=== PATIENT | female | born 1935 | race Caucasian/White ===

== ENCOUNTER 2016-06-06 19:05 | Inpatient (IN) | payer MEDICARE, BC ==
--- NOTE | 2016-06-06 19:12 | ERNOTE ---
Lower Extremity HPI - Narrative Date of Service: 06/06/16 - General Lower Extremities Pain: hip: right, thigh: right Time Seen by Provider: 06/06/16 19:08 Source: patient, family, RN/MD, EMS, RN notes reviewed, EMS notes reviewed, old records Exam Limitations: no limitations - Immun/Allergies/Home Medications Allergies/Adverse Reactions: Allergies Allergy/AdvReac Type Severity Reaction Status Date / Time No Known Allergies Allergy Verified 06/06/16 20:58 Home Medications: HOME MEDICATIONS Lisinopril [Zestril] 10 mg PO DAILY 06/06/16 [Last Taken 06/06/16 10] Lovastatin 40 mg PO DAILY 06/06/16 [Last Taken Unknown] Metoprolol Tartrate [Lopressor] 50 mg PO BID 06/06/16 [Last Taken 06/06/16 08: 00 50 mg] - History of Present Illness Narrative: This 81-year-old female was at home walking with her when he slipped and almost fell. In attempting to catch him, she also fell. Unfortunately, she injured her hip. Evaluation at the [facility] revealed that she had sustained a right femoral head fracture. [facility] does not have orthopedic services available presently. They consult it with Dr. Rubin from the [facility]. Dr. Rubin agreed to accept the patient in transfer. He asked that the patient be admitted to the medical service here and he would perform surgery. In the emergency department, she was found to have a urinary tract infection. She was given a single dose of ceftriaxone 1 g by IV. Her evaluation did not reveal any other current problems at this time. Upon arrival here, the patient reports that she is reasonably comfortable. She denies any other problems at this time. Occurred: this afternoon Location of Incident: home Method of Injury: Reports: fell Reason for Fall: Reports: slipped Loss of Consciousness: Reports: no loss of consciousness Modifying Factors - (Improves): Reports: immobilization, pain medication, rest Modifying Factors - (Worsens): Reports: jarring, movement Associated Symptoms: Reports: unable to bear weight. Denies: weakness, sensory loss, vomiting/diarrhea, bowel/bladder problems, other injuries Other Injuries: Reports: none Subsequent Symptoms: Denies: sensory loss, numbness, motor loss, bowel/bladder problem Prior Treament: Reports: recently seen - at [facility] , treated by physician Review of Systems - Review of Systems Constitutional: Present: no symptoms reported EYE: Present: no symptoms reported ENT: Present: no symptoms reported Respiratory: Present: no symptoms reported Cardiology: Present: no symptoms reported Gastrointestinal/Abdominal: Present: no symptoms reported Genitourinary: Present: no symptoms reported Musculoskeletal: Present: See HPI, muscle pain - right thigh, joint pain - right hip. Absent: back pain, muscle stiffness, neck pain Skin: Present: no symptoms reported Neurological: Present: no symptoms reported Endocrine: Present: no symptoms reported Hematologic/Lymphatic: Present: no symptoms reported Psych: Present: no symptoms reported All Other Systems: All systems neg except as marked - Family History Father Family History - Medical: Family History - Cardiac/Respiratory: Cardiac Arrest Mother Family History - Medical: , No pertinent hx Physical Exam - Physical Exam General Appearance: Present: wd/wn, alert, no apparent distress Eye Exam: Normal inspection: bilateral, PERRL: bilateral, EOMI: bilateral Ears, Nose, Throat: Present: normal ENT inspection, hearing grossly normal Neck: Present: normal inspection, nontender Respiratory: Present: no respiratory distress, normal breath sounds, no accessory muscle use, chest nontender, lungs clear Cardiovascular/Chest: Present: regular rate, rhythm, no murmur, normal peripheral pulses Peripheral Pulses: N=norm/S=strong/W=weak/B=bound/A=absent: Carotid (R): Normal , Carotid (L): Normal, Radial (R): Normal, Radial (L): Normal, Femoral (R): Normal, Femoral (L): Normal, Dorsalis-pedis (R): Normal, Dorsalis-pedis (L): Normal Gastrointestinal/Abdominal: Present: normal bowel sounds, nontender, nondistended, soft, no organomegaly Back Exam: Present: normal inspection, no CVA tenderness, no vertebral tenderness Extremity Exam: Present: no edema, decreased range of motion, pelvis stable, other - splint immobilizing right thigh, distal neurovascular intact, cap refill in foot brisk, less than 2 seconds. Absent: pedal edema, calf tenderness , extremity edema Neurological Exam: Present: alert, oriented, normal mood/affect, no motor/ sensory deficits Skin Exam: Present: normal color, warm/dry Lymphatic Exam: Present: no adenopathy ED Progress - Results and Orders Patient's Lab Results:: I have reviewed the patient's lab results. - as available from [facility] emergency department - Vital Signs Patient's Vital Signs:: I have reviewed the patient's vital signs. Departure Clinical Impression: Fracture of femoral neck, right - Departure Disposition: [facility] Condition: Stable
[2016-06-06] MEDS ORDERED: ONDANSETRON HCL/PF 2 MG/ML VIAL IV PRN (19:40)
[2016-06-06] MEDS: HYDROmorphone HCL 1 MG/ML DISP.SYRIN IV PRN ×2 (19:58→22:09)
[2016-06-06 20:13] LABS: Hematocrit 44.4 % (37.0-47.0); Hemoglobin 14.8 gm/dL (12.5-16.0); Mean Cell Volume 88.1 fl (78-100); Mean Corpuscular Hemoglobin 29.4 pg (27-31); Mean Corpuscular Hgb Conc 33.3 g/dl (32-36); Mean Platelet Volume 9.3 fl (6.0-9.5); Neutrophil # 10.6 K/mm3 (1.3-6.0); Neutrophil % 83.5 % (42-75.0); Platelet Count 289 K/mm3 (150-450); Red Blood Count 5.04 M/mm3 (4.2-5.4); Red Cell Distribution Width 12.9 % (11.5-14.0); White Blood Count 12.7 K/mm3 (4.0-10.5)
[2016-06-06 20:22] LABS: Anion Gap 15.1 mmol/L (6.8-13.8); BUN/Creatinine Ratio 14.1 (9.0-21.6); Calcium * 8.9 mg/dL (7.9-10.9); Carbon Dioxide 25.9 mmol/L (24-32.6); Estimated Creat Clear 42.2
[2016-06-06 20:24] LABS: Prothrombin Time (Patient) 10.5 Seconds (9.4-11.4)
[2016-06-06 20:25] LABS: INR 1.01 INR (0.90-1.10); Partial Thrombolplastin Time 28.5 Seconds (24-32)
--- NOTE | 2016-06-06 21:05 | HP ---
<Lizabeth Valentin - Last Filed: 06/07/16 06:50> Chief Complaint - Chief Complaint Date of Service: 06/06/16 Time of Service: 20:08 Chief Complaint: " Fall". Source of HPI- Pt; reliable, ER provider report. History of Present Illness: Mrs. Timmons is a 81- yr-old WF pt who normally sees Dr. Triston Skelton, a family practice physician in [place]. Her PMH involved HTN & HLD. Pt states that while assisting her spouse going to the bathroom upstairs, he lost his balance. She took steps backward to prevent him from falling but in-turn, she lost balance and fell down two steps and her fell still. She landed on her back during the fall. She was taken to [facility] where X-Ray films completed showed she had sustained a RT hip femoral neck fracture. Arrangements were made for her to be seen by the Orthopedics at [facility] as the specialty doctor at the [facility] was not available today. Pt denies fevers & chills. She also denies n/v, no abd pain, no diarrhea, no SOB & no C.P. She will need to be admitted inpatient for a minimum of 2 midnight or more due to, surgical repair procedure that requires preoperative and postoperative monitoring, as well as rehabilitation services arrangements. - Patient's Past Medical History Patient History - Medical: No pertinent hx Patient History - Cardiac/Respiratory: Hypertension, Hyperlipidemia Patient History - Cancer: Bone Patient History - Surgical Procedures: Other LMP (females 10-50): Menopausal - Family History Father Family History - Medical: Family History - Cardiac/Respiratory: Cardiac Arrest Mother Family History - Medical: , No pertinent hx - Social History Living Situations: spouse Alcohol Use: none Drug Use: none - Immunizations Immunizations Up to Date: Yes Hx Pneumococcal Vaccination: Yes History of Influenza Vaccine: Yes Review Of Systems (GEN) - Review of Systems Generalized/Overall Review: Absent: Weakness, Chills, Fever, Diaphoresis EENTM: Absent: Eye Pain, Blurred Vision, Nose Congestion, Throat Pain Respiratory: Absent: Cough, Shortness of Breath, Wheezing Cardiac: Absent: Chest Pain, Edema, Palpitations Abdominal: Absent: Nausea, Vomiting, Abdominal Pain, Constipation Genitourinary: Absent: Burning, Itching, Urgency Musculoskeletal: Absent: Joint Pain, Back Pain Neurological: Absent: Headache, Anxiety, Weakness Skin: Present: Bruising. Absent: Dryness, Lesions, Lumps Endocrine: Absent: Increased Hunger, Increased Thirst Misc: All systems neg except as marked Allergies/Adverse Reactions: Allergies Allergy/AdvReac Type Severity Reaction Status Date / Time No Known Allergies Allergy Verified 06/06/16 20:58 Home Medications: HOME MEDICATIONS Lisinopril [Zestril] 10 mg PO DAILY 06/06/16 [Last Taken 06/06/16 10] Lovastatin 40 mg PO DAILY 06/06/16 [Last Taken Unknown] Metoprolol Tartrate [Lopressor] 50 mg PO BID 06/06/16 [Last Taken 06/06/16 08: 00 50 mg] Exam - Exam Vital Signs: Vital Signs - Last Taken Temp 36.8 C 06/06/16 19:08 Pulse 71 06/06/16 19:18 Resp 16 06/06/16 19:18 BP 182/99 06/06/16 19:18 Pulse Ox 96 06/06/16 19:18 Constitutional: Present: Alert, Oriented x3, Mild distress, Elderly ENT Exam: Present: normal ENT inspection. Absent: nasal congestion, nasal drainage, dry mucous membranes Eye Exam: bilateral eye: normal inspection, PERRL Neck: Present: full range of motion, supple, normal inspection Back Exam: Present: no CVA tenderness Breasts: Present: Exam deferred Respiratory: Present: lungs clear, no accessory muscle use Cardiovascular/Chest: Present: regular rate, rhythm, no chest tenderness, no murmur Abdomen: Present: Normal bowel sounds, soft, nontender /Rectal: Present: Exam deferred Skin Exam: Present: normal color, no cyanosis. Absent: diaphoresis Lymphatic: Present: no adenopathy Appearance: Present: appropriate appearance, appropriate insight, no memory impairment Eye contact: Present: cooperative, good eye contact, normal speech Thoughts: Present: normal thought pattern, no apparent hallucination Assessment/Plan - Assessment/Plan (1) Fracture of femoral neck, right Assessment: The X-ray film obtained at [facility] showed RT femoral Neck fracture. Arrangments have been made to proceed with repair of the hip by Dr. Harley and he is aware. Will admit for supportive cares: pain management, IVF hydration, immobilization of affected extremity. The CXR done in [facility] showed no cardiopulmonary disease process. The EKG showed NSR. According to RCRI score, she has a 0.9 % risk of major cardiac event perioperative. The benefit of proceeding with surgery outweighs the risk not doing any procedure. She is medically cleared to continue with surgery as planned. Problem: Acute (2) HTN (hypertension) Assessment: Keep pain under control, and continue with Metoprolol & Lisinopril. Problem: Chronic QualifierTitle: Hypertension type: essential hypertension Qualified Code( s): I10 - Essential (primary) hypertension (3) HLD (hyperlipidemia) Assessment: Stable- Continue Lovastatin. Problem: Chronic <Uvaldo Dean - Last Filed: 06/07/16 11:58> Immunizations: IMMUNIZATION HX Immunizations Up to Date Yes History of Influenza Vaccine Yes Hx Pneumococcal Vaccination Yes Exam - Exam Vital Signs: Vital Signs - Last Taken Temp 36.6 C 06/07/16 11:21 Pulse 69 06/07/16 11:50 Resp 18 06/07/16 11:21 BP 181/83 06/07/16 11:50 Pulse Ox 94 06/07/16 11:21 Diagnostic Studies: Abnormal Lab Results 06/06/16 06/06/16 Range/Units 19:34 20:00 WBC 12.7 H (4.0-10.5) K/mm3 Immature Gran % (Auto) 0.50 H (0.001-0.429) % Immature Gran # (Auto) 0.06 H (0.000-0.0310) K/mm3 Neutrophils % 83.5 H (42-75.0) % Lymphocytes % 9.9 L (20-51) % Neutrophils # 10.6 H (1.3-6.0) K/mm3 Lymphocytes # 1.3 L (1.5-3.5) k/mm3 Anion Gap 15.1 H (6.8-13.8) mmol/L Random Glucose 131 H (70-110) mg/dL Laboratory Results WBC 12.7 K/mm3 (4.0-10.5) H 06/06/16 19:34 RBC 5.04 M/mm3 (4.2-5.4) 06/06/16 19:34 Hgb 14.8 gm/dL (12.5-16.0) 06/06/16 19:34 Hct 44.4 % (37.0-47.0) 06/06/16 19:34 MCV 88.1 fl (78-100) 06/06/16 19:34 MCH 29.4 pg (27-31) 06/06/16 19:34 MCHC 33.3 g/dl (32-36) 06/06/16 19:34 RDW 12.9 % (11.5-14.0) 06/06/16 19:34 Plt Count 289 K/mm3 (150-450) 06/06/16 19:34 MPV 9.3 fl (6.0-9.5) 06/06/16 19:34 Immature Gran % (Auto) 0.50 % (0.001-0.429) H 06/06/16 19:34 Immature Gran # (Auto) 0.06 K/mm3 (0.000-0.0310) H 06/06/16 19:34 Neutrophils % 83.5 % (42-75.0) H 06/06/16 19:34 Lymphocytes % 9.9 % (20-51) L 06/06/16 19:34 Monocytes % 5.3 % (0.0-9) 06/06/16 19:34 Eosinophils % 0.4 % (0.0-3.0) 06/06/16 19:34 Basophils % 0.4 % (0.0-1.0) 06/06/16 19:34 Nucleated RBC % 0.0 k/mm3 (0-1) 06/06/16 19:34 Neutrophils # 10.6 K/mm3 (1.3-6.0) H 06/06/16 19:34 Lymphocytes # 1.3 k/mm3 (1.5-3.5) L 06/06/16 19:34 Monocytes # 0.7 k/mm3 (0.0-1.0) 06/06/16 19:34 Eosinophils # 0.1 k/mm3 (0.0-0.7) 06/06/16 19:34 Absolute Basophils 0.1 k/mm3 (0.0-0.1) 06/06/16 19:34 PT 10.5 Seconds (9.4-11.4) 06/06/16 20:00 INR (Anticoag Therapy) 1.01 INR (0.90-1.10) 06/06/16 20:00 PTT (Mendy) 28.5 Seconds (24-32) 06/06/16 20:00 Sodium 139 mmol/L (132-142) 06/06/16 20:00 Plasma Sodium 139 mmol/L (130-142) 06/06/16 20:00 Potassium 4.0 mmol/L (3.4-4.6) 06/06/16 20:00 Chloride 102 mmol/L (97-106) 06/06/16 20:00 Carbon Dioxide 25.9 mmol/L (24-32.6) 06/06/16 20:00 Anion Gap 15.1 mmol/L (6.8-13.8) H 06/06/16 20:00 BUN 12 mg/dL (3-23) 06/06/16 20:00 Creatinine 0.85 mg/dL (0.4-1.4) 06/06/16 20:00 Est GFR (Non-Af Amer) 68 mL/min (60-130) 06/06/16 20:00 BUN/Creatinine Ratio 14.1 (9.0-21.6) 06/06/16 20:00 Random Glucose 131 mg/dL (70-110) H 06/06/16 20:00 Calcium 8.9 mg/dL (7.9-10.9) 06/06/16 20:00 Blood Type O Negative 06/06/16 20:00 Antibody Screen Negative 06/06/16 20:00 Assessment/Plan - Narrative Narrative: I reviewed the record and examined the patient. I personally directed all of [facility]'s care for this patient. There are no contraindications for the intended surgery. There may be a UTI based on [place] records, and we are treating with IV Rocephin. Culture is pending in [place]. We will do an EKG in anticipation of right hip repair.
[2016-06-06] MEDS ORDERED: SIMVASTATIN 20 MG TABLET ONE (21:22)
[2016-06-06] MEDS: METOPROLOL TARTRATE 50 MG TABLET PO SCH (21:33)
[2016-06-06] MEDS: RINGERS SOLUTION,LACTATED 1,000 ML IV PRN (21:35)
[2016-06-07] MEDS: HYDROmorphone HCL 1 MG/ML DISP.SYRIN IV PRN ×4 (03:02→22:35)
[2016-06-07] MEDS: RINGERS SOLUTION,LACTATED 1,000 ML IV PRN ×3 (05:37→22:32)
--- NOTE | 2016-06-07 08:50 | PN ---
<Vandana Diaz - Last Filed: 06/07/16 08:50> Subjective - Date and Time Seen Date: 06/07/16 Time: 08:45 Subjective Narrative: Patient seen today with family at the bedside, she is AOX3 no acute distress and denies right hip pain, no chest pain, shortness of breath, cough, palpitation, fever, chills or dysuria. pt anticipating procedure tomorrow with Dr Guidry. Objective - Review of Systems Generalized/Overall Review: Reports: No Symptoms Reported EENTM: Reports: No Symptoms Reported Respiratory: Reports: No Symptoms Reported Cardiac: Reports: No Symptoms Reported Abdominal: Reports: No Symptoms Reported Genitourinary Symptoms: Reports: No Symptoms Reported Musculoskeletal Complaints: Reports: No Symptoms Reported Neurological: Reports: No Symptoms Reported Skin: Reports: No Symptoms Reported - Vitals Vitals: Last Vital Signs Temp 37 C 06/07/16 07:51 Pulse 66 06/07/16 07:51 Resp 18 06/07/16 07:51 BP 151/71 06/07/16 07:51 Pulse Ox 96 06/07/16 07:51 - Abnormal Lab Findings Abnormal Lab Findings: Abnormal Lab Results 06/06/16 06/06/16 Range/Units 19:34 20:00 WBC 12.7 H (4.0-10.5) K/mm3 Immature Gran % (Auto) 0.50 H (0.001-0.429) % Immature Gran # (Auto) 0.06 H (0.000-0.0310) K/mm3 Neutrophils % 83.5 H (42-75.0) % Lymphocytes % 9.9 L (20-51) % Neutrophils # 10.6 H (1.3-6.0) K/mm3 Lymphocytes # 1.3 L (1.5-3.5) k/mm3 Anion Gap 15.1 H (6.8-13.8) mmol/L Random Glucose 131 H (70-110) mg/dL - EKG/Xray Findings EKG: NSR - Exam Constitutional: Present: Alert, Oriented x3, Cooperative, Well developed, No distress, Elderly ENT Exam: Present: normal ENT inspection, moist mucous membranes Neck: Present: non-tender, full range of motion Breasts: Present: Exam deferred Respiratory: Present: chest non-tender, lungs clear, normal breath sounds, no respiratory distress, no accessory muscle use Cardiovascular/Chest: Present: normal peripheral pulses, regular rate, rhythm, no chest tenderness, no edema Abdomen: Present: Normal bowel sounds, soft, nontender, nondistended, no rebound tenderness /Rectal: Present: Other - Harmon cath Extremity: Present: other - Right leg limited ROM, splint Neurologic: Present: oriented x 3 Appearance: Present: appropriate appearance Eye contact: Present: cooperative, good eye contact Thoughts: Present: normal thought pattern Assessment/Plan Plan Narrative: 1) Fracture of femoral neck, right Secondary to mechanical fall while at home. Outside facility X-Ray obtained showed right femoral fracture Splint was applied at outside facility Ortho service Dr. Guidry following Pain management with IV Dilaudid VTE ppx SCD/ discussed with Dr guidry , pt will have spinal anesthesia and no Lovenox at this time. RCRI: Pt is medically appropriate for planned procedure tomorrow. Low sodium, low cholesterol diet and NPO after mid-night EKG- NSR CXR: No acute cardiopulmonary disease process. (2) HTN (hypertension) Continue with home dose of Metoprolol & Lisinopril. (3) HLD (hyperlipidemia) Assessment: Stable- Continue with home dose Lovastatin. 4) UTI Urinalysis + nitrites, trace leuk esterace 06/06/16 17:45 Rocephin 1g given at outside facility. Culture pending, will follow up. 06/06/16 Harmon cath 16F was inserted outside facility, plans to DC soon as pt up ambulating. Code Status: Full - Problems/Diagnosis (1) Fracture of femoral neck, right Problem: Acute QualifierTitle: Encounter type: initial encounter (2) HLD (hyperlipidemia) Problem: Chronic (3) HTN (hypertension) Problem: Chronic QualifierTitle: Hypertension type: essential hypertension Qualified Code( s): I10 - Essential (primary) hypertension <Uvaldo Dean - Last Filed: 06/07/16 12:00> Objective - Vitals Vitals: Last Vital Signs Temp 36.6 C 06/07/16 11:21 Pulse 69 06/07/16 11:50 Resp 18 06/07/16 11:21 BP 181/83 06/07/16 11:50 Pulse Ox 94 06/07/16 11:21 - Abnormal Lab Findings Abnormal Lab Findings: Abnormal Lab Results 06/06/16 06/06/16 Range/Units 19:34 20:00 WBC 12.7 H (4.0-10.5) K/mm3 Immature Gran % (Auto) 0.50 H (0.001-0.429) % Immature Gran # (Auto) 0.06 H (0.000-0.0310) K/mm3 Neutrophils % 83.5 H (42-75.0) % Lymphocytes % 9.9 L (20-51) % Neutrophils # 10.6 H (1.3-6.0) K/mm3 Lymphocytes # 1.3 L (1.5-3.5) k/mm3 Anion Gap 15.1 H (6.8-13.8) mmol/L Random Glucose 131 H (70-110) mg/dL Assessment/Plan Plan Narrative: I reviewed the record and personally examined the patient along with Vandana Diaz. I directly supervised all of Vandana's care for the patient. We will do a preop EKG. We will continue with IV Rocephin for possible UTI pending culture. There are no contraindications to the intended surgery.
[2016-06-07] MEDS ORDERED: LISINOPRIL 10 MG TABLET PO SCH (09:00)
[2016-06-07] MEDS: METOPROLOL TARTRATE 50 MG TABLET PO SCH ×2 (09:22→16:03)
[2016-06-07] MEDS ORDERED: LISINOPRIL 10 MG TABLET PO ONE (11:30)
[2016-06-07] MEDS: amLODIPine BESYLATE 5 MG TABLET PO SCH (11:50)
[2016-06-07] MEDS ORDERED: ceFAZolin SODIUM 1 GM VIAL IV PRN (13:19)
--- NOTE | 2016-06-07 13:19 | CONS ---
- Reason for consultation (1) Fracture of femoral neck, right Date of Service: 06/07/16 HPI - General Narrative: Mrs. Timmons is an 81-year-old female who was helping her when she fell resulting in injury to her right hip. She is unable to weight-bear and a notable pain. She is brought to the emergency department a [facility] at which time she is found to have a displaced femoral neck fracture. She was then transferred to [place] for further evaluation as there is no orthopedic coverage there. She is placed in a splint from her knee down in the ER at [place]. She states that she is having minimal pain at this time. She denies any loss consciousness or any other areas of pain. She denies any prior hip pain. She states that she is a community ambulator and does her own errands and is otherwise fairly active. Source: patient Exam Limitations: no limitations - History of Present Illness Timing/Duration: 24 hours Severity: moderate Modifying Factors - (Worsens): Reports: movement Modifying Factors - (Improves): Reports: immobilization, rest Allergies/Adverse Reactions: Allergies No Known Allergies Allergy (Verified 06/06/16 20:58) Home Medications: Home Medications Medication Instructions Recorded Last Taken Lisinopril [Zestril] 10 mg PO DAILY 06/06/16 06/06/16 10 Lovastatin 40 mg PO DAILY 06/06/16 Unknown Metoprolol Tartrate [Lopressor] 50 mg PO BID 06/06/16 06/06/16 08:00 50 mg - Patient's Past Medical History Patient History - Medical: No pertinent hx Patient History - Cardiac/Respiratory: Hypertension, Hyperlipidemia Patient History - Cancer: Bone Patient History - Surgical Procedures: Other LMP (females 10-50): Menopausal - Family History Family History:: no untoward family reactions to anesthesia, no family history of clotting disorders - Family History Father Family History - Medical: Family History - Cardiac/Respiratory: Cardiac Arrest Mother Family History - Medical: , No pertinent hx - Social History Living Situations: spouse Smoking Status: Never smoker Have you smoked in the past 12 months: No Alcohol Use: none Drug Use: none Procedures ANESTH INJECT-SPIN CANAL (02/17/10) INJECT STEROID (02/17/10) SPINAL CANAL INJECT NEC (02/17/10) Medications - Medications Current Medications: Current Medications Amlodipine Besylate (Norvasc) 2.5 mg PO DAILY [facility] Stop: 07/07/16 11:31 Last Admin: 06/07/16 11:50 Dose: 2.5 mg Hydromorphone HCl (Dilaudid) 0.5 mg IV Q2H PRN PRN Reason: Moderate Pain Stop: 07/06/16 19:41 Last Admin: 06/07/16 11:12 Dose: 0.5 mg Lactated Ringer's (Lactated Ringers) 1,000 mls @ 125 mls/hr IV .Q8H PRN PRN Reason: HYDRATION Stop: 07/06/16 20:49 Last Admin: 06/07/16 05:37 Dose: 125 mls/hr Metoprolol Tartrate (Lopressor) 50 mg PO BIDWM [facility] Stop: 07/06/16 21:16 Last Admin: 06/07/16 09:22 Dose: 50 mg Review of Systems - Review of Systems Generalized/Overall Review: Absent: Malaise Musculoskeletal: Absent: Joint Pain Physical Examination - Exam Narrative: Right lower extremity: She is in a long-leg splint that stops at her mid thigh. She is palpatory dorsalis pedis pulse. She is able to flex and extend her toes. Sensation is intact light touch. Her thigh is soft. She has no ecchymosis lacerations or abrasions about her hip. She has pain with any hip range of motion. Vital Signs: Vital Signs - Last Taken Temp 36.6 C 06/07/16 11:21 Pulse 69 06/07/16 11:50 Resp 18 06/07/16 11:21 BP 181/83 06/07/16 11:50 Pulse Ox 94 06/07/16 11:21 O2 Oxygen Delivery Method Room Air Constitutional: Present: Alert, Oriented x3 - Results and Findings: Narrative: AP pelvis 2 views of right hip: Displaced right mid cervical femoral neck fracture, no pelvic fractures, no other gross pathology Lab/Microbiology results last 24 hrs: Abnormal/Pending Laboratory Last 24 HRS 06/06/16 06/06/16 20:00 19:34 WBC 12.7 H Immature Gran % (Auto) 0.50 H Immature Gran # (Auto) 0.06 H Neutrophils % 83.5 H Lymphocytes % 9.9 L Neutrophils # 10.6 H Lymphocytes # 1.3 L Anion Gap 15.1 H Random Glucose 131 H - Assessments/Findings (1) Fracture of femoral neck, right Diagnosis(s): She is a displaced right femoral neck fracture. For this we will plan for right hip hemiarthroplasty. The risks benefits alternatives were discussed with her at the bedside. Her leg was marked at the bedside. She will obtain consent for surgical treatment tomorrow. She'll be nothing by mouth after midnight. We discussed removing her splint as providing immobilization of her hip. She'll need IV Ancef for perioperative antibiotics. We will utilize 10 days postoperative Lovenox for DVT prophylaxis. Problem: Acute Qualifiers: Encounter type: initial encounter Fracture type: closed Qualified Code(s) : S72.001A - Fracture of unspecified part of neck of right femur, initial encounter for closed fracture
[2016-06-07] MEDS ORDERED: ACETAMINOPHEN 325 MG TABLET PO PRN (15:48)
[2016-06-07] MEDS ORDERED: ACETAMINOPHEN 325 MG TABLET ONE (16:01)
[2016-06-07] MEDS: SIMVASTATIN 20 MG TABLET PO SCH (20:37)
[2016-06-07] MEDS: LISINOPRIL 10 MG TABLET PO SCH (20:37)
[2016-06-08 05:35] LABS: Hematocrit 37.7 % (37.0-47.0); Hemoglobin 12.7 gm/dL (12.5-16.0); Mean Cell Volume 87.1 fl (78-100); Mean Corpuscular Hemoglobin 29.3 pg (27-31); Mean Corpuscular Hgb Conc 33.7 g/dl (32-36); Mean Platelet Volume 9.4 fl (6.0-9.5); Neutrophil # 6.1 K/mm3 (1.3-6.0); Neutrophil % 70.5 % (42-75.0); Platelet Count 208 K/mm3 (150-450); Red Blood Count 4.33 M/mm3 (4.2-5.4); Red Cell Distribution Width 12.6 % (11.5-14.0); White Blood Count 8.7 K/mm3 (4.0-10.5)
[2016-06-08 05:45] LABS: Anion Gap 11.4 mmol/L (6.8-13.8); Calcium * 8.3 mg/dL (7.9-10.9); Carbon Dioxide 26.1 mmol/L (24-32.6); Estimated Creat Clear 39.4; Potassium 3.5 mmol/L (3.4-4.6)
[2016-06-08] MEDS: RINGERS SOLUTION,LACTATED 1,000 ML IV PRN ×2 (07:19→11:30)
--- NOTE | 2016-06-08 09:30 | PN ---
<Vandana Diaz - Last Filed: 06/08/16 15:15> Subjective - Date and Time Seen Date: 06/08/16 Time: 07:15 Subjective Narrative: Patient was seen today with daughter at the bedside, she denies fatigue, weakness, nausea, calf pain or shortness of breath. Objective - Review of Systems Generalized/Overall Review: Reports: No Symptoms Reported EENTM: Reports: No Symptoms Reported Respiratory: Reports: No Symptoms Reported Cardiac: Reports: No Symptoms Reported Abdominal: Reports: No Symptoms Reported Genitourinary Symptoms: Reports: No Symptoms Reported Musculoskeletal Complaints: Reports: Other - hip pain with movement Neurological: Reports: No Symptoms Reported Skin: Reports: No Symptoms Reported Endocrine: Reports: No Symptoms Reported - Vitals Vitals: Last Vital Signs Temp 37.1 C 06/08/16 06:31 Pulse 67 06/08/16 06:31 Resp 20 06/08/16 06:31 BP 140/76 06/08/16 06:31 Pulse Ox 94 06/08/16 06:31 - Abnormal Lab Findings Abnormal Lab Findings: Abnormal Lab Results 06/08/16 Range/Units 05:26 Immature Gran % (Auto) 0.50 H (0.001-0.429) % Immature Gran # (Auto) 0.04 H (0.000-0.0310) K/mm3 Lymphocytes % 15.7 L (20-51) % Monocytes % 9.2 H (0.0-9) % Eosinophils % 3.8 H (0.0-3.0) % Neutrophils # 6.1 H (1.3-6.0) K/mm3 Lymphocytes # 1.4 L (1.5-3.5) k/mm3 - Exam Constitutional: Present: Alert, Oriented x3, Cooperative, Well developed, Well nourished, No distress, Elderly ENT Exam: Present: normal ENT inspection, moist mucous membranes Neck: Present: full range of motion Respiratory: Present: chest non-tender, lungs clear, normal breath sounds, no respiratory distress Cardiovascular/Chest: Present: normal peripheral pulses, regular rate, rhythm, no chest tenderness, no edema Abdomen: Present: Normal bowel sounds, soft, nontender, nondistended, no rebound tenderness /Rectal: Present: Exam deferred Extremity: Present: normal capillary refill, other - Limited ROM right hip Skin Exam: Present: normal color, warm/dry, no cyanosis, cool/dry Neurologic: Present: oriented x 3 Appearance: Present: appropriate appearance Eye contact: Present: cooperative Thoughts: Present: normal thought pattern Cauti Physician Documentation - Urinary Catheter Management Urethral (Harmon) Date of Insertion: 06/06/16 Assessment/Plan Plan Narrative: 1) Fracture of femoral neck, right Secondary to mechanical fall while at home. Outside facility X-Ray obtained showed right femoral fracture Splint was applied at outside facility Ortho service Dr. Guidry following, plan for surgery today Continue with Pain management IV Dilaudid VTE ppx SCD/ discussed with Dr guidry , pt will have spinal anesthesia and no Lovenox. VTE ppx ortho service for management RCRI: Pt is medically appropriate for planned procedure tomorrow. Low sodium, low cholesterol diet and NPO after mid-night EKG- NSR CXR: No acute cardiopulmonary disease process. (2) HTN (hypertension) Continue with home dose of Metoprolol & Lisinopril. (3) HLD (hyperlipidemia) Assessment: Stable- Continue with home dose Lovastatin. 4) UTI 06/06/16----> WBC 12.7-------> 06/08 8.7 stable Urinalysis + nitrites, trace leuk esterace 06/06/16 17:45 Rocephin 1g given at outside facility, will continue on adm.will Dc on keflex urine Culture + e-coli 06/06/16 Harmon cath 16F was inserted outside facility, plans to DC soon as pt up ambulating. Code Status: Full - Problems/Diagnosis (1) Fracture of femoral neck, right Problem: Acute QualifierTitle: Encounter type: initial encounter Fracture type: closed Qualified Code(s): S72.001A - Fracture of unspecified part of neck of right femur, initial encounter for closed fracture (2) HLD (hyperlipidemia) Problem: Chronic (3) HTN (hypertension) Problem: Chronic QualifierTitle: Hypertension type: essential hypertension Qualified Code( s): I10 - Essential (primary) hypertension <Uvaldo Dean - Last Filed: 06/08/16 18:17> Objective - Vitals Vitals: Last Vital Signs Temp 36.7 C 06/08/16 15:45 Pulse 72 06/08/16 16:01 Resp 21 H 06/08/16 15:45 BP 171/89 06/08/16 16:01 Pulse Ox 93 06/08/16 15:45 - Abnormal Lab Findings Abnormal Lab Findings: Abnormal Lab Results 06/08/16 Range/Units 05:26 Immature Gran % (Auto) 0.50 H (0.001-0.429) % Immature Gran # (Auto) 0.04 H (0.000-0.0310) K/mm3 Lymphocytes % 15.7 L (20-51) % Monocytes % 9.2 H (0.0-9) % Eosinophils % 3.8 H (0.0-3.0) % Neutrophils # 6.1 H (1.3-6.0) K/mm3 Lymphocytes # 1.4 L (1.5-3.5) k/mm3 Assessment/Plan Plan Narrative: Record reviewed. Patient examined. I directly supervised all of Vandana Diaz's care for this patient. The patient is stable and is ok for hip repair today.
[2016-06-08] MEDS: amLODIPine BESYLATE 5 MG TABLET PO SCH (09:44)
[2016-06-08] MEDS: METOPROLOL TARTRATE 50 MG TABLET PO SCH ×2 (09:44→16:01)
[2016-06-08] MEDS: LISINOPRIL 10 MG TABLET PO SCH ×2 (09:45→20:31)
[2016-06-08] MEDS: HYDROmorphone HCL 1 MG/ML DISP.SYRIN IV PRN (10:10)
[2016-06-08] MEDS ORDERED: RINGERS SOLUTION,LACTATED 1,000 ML IV ONE ×2 (12:15→13:15)
[2016-06-08] MEDS ORDERED: ACETAMINOPHEN 500 MG TABLET PO PRN (13:31)
[2016-06-08] MEDS ORDERED: MAGNESIUM HYDROXIDE 30 ML UDC PO PRN (13:31)
[2016-06-08] MEDS ORDERED: MAG HYDROX/ALUMINUM HYD/SIMETH 30 ML UDC PO PRN (13:31)
--- NOTE | 2016-06-08 13:34 | OR ---
Operative Report - Dictated Report Narrative: Date: 06/08/2016 Preoperative diagnosis: Closed right hip displaced femoral neck fracture. Postoperative diagnosis: Closed right hip displaced femoral neck fracture Procedure: Right hip cemented billy-arthroplasty. Surgeon: Yonatan Guidry M.D. Hair Specialist: Dennis Quan PA-C Anesthesia: Spinal. Complications: None Specimens: Bone for disposal. Estimated blood loss: 150 milliliters. Retained implants: [employer] [place] size 3 basic cemented femoral stem. Size 44 millimeter ouside diameter self-centering bipolar head with +1.5 millimeter cobalt chromium 28 mm femoral head. Indications: Mrs. Timmons is a 81-year-old female who fell from standing position while attempting to help her . This patient was evaluated on the floor and found to have sustained a displaced femoral neck fracture. The risks and benefits were discussed with the patient as well as any power of contract attorney or family . The patient wished to proceed with surgical treatment. The risks, benefits, and alternatives discussed were , blood clots, bleeding, infection, nerve/tendon blood vessel/ injury, malposition of components, dislocation and/or instability of joint, intraoperative fracture, postoperative limited range of motion, persistent pain, failure of components, and need for additional procedures. Patient wished to proceed. Consent was obtained after answering all questions. Procedure: After marking the correct extremity on the floor, the patient was taken to the operating room. A timeout was performed. IV antibiotics consisting of Ancef were administered prior to the procedure. A spinal anesthetic was induced by anesthesia. A Harmon catheter was inserted if not are in place. The patient was then transitioned to a lateral position on a well- padded pegboard. An axillary roll was placed. The head was in neutral position. The non-operative down leg was well-padded with SCD and JOEL hose in place. The arms were supported and padded to protect from any undue pressure on the bony prominences and nerves. Well-padded anterior and posterior pelvic and chest posts were secured in order to maintain a stable position of the pelvis. This was placed so that the pelvis was perpendicular to the floor. The body was in line with the pelvis. Once it was felt that we had protected all the bony prominences and the patient was well secured with a safety belt as well, the leg was pre-scrubbed with alcohol, prepped and draped in a standard sterile fashion. A standard anterior lateral hip incision was marked out over the greater trochanter. Ioban drapes were then placed. The skin incision was then made. Sharp dissection with a scalpel utilizing cautery for hemostasis was carried out down to the gluteus and iliotibial band fascia. This was split in line with the skin incision. The greater trochanter bursa was excised. The anterior and posterior margins of the abductor tendon were identified. The anterior 1/2-1/3 of the tendon was tagged and reflected off the greater trochanter leaving a sleeve of tendon for repair at the completion of the case. This exposed the underlying hip joint capsule. An inverted T-type capsulotomy was made extending this up to the brim of the acetabulum. We encountered a hematoma at this point confirming an acute fracture as well as noted displacement of the femoral neck fracture. Using Homans to assist with elevation of the soft tissues off the anterior, superior, and inferior aspects of the femoral neck, the hip was then placed in a figure 4 position for a femoral neck cleanup cut to be made. With the leg in an externally rotated and adducted position, the cutting flag was utilized in order to buster for a standard femoral neck cut approximately a fingerbreadth above the level of the lesser trochanter. This was done while protecting the surrounding soft tissues with Homans. The femoral head was then removed and sized for guidance on the size of the bipolar head. It was noted that there was no significant loss of articular cartilage on both the femoral head and weightbearing portions of the acetabulum. We then returned the leg to the table and turned our attention to the acetabulum. While protecting the surrounding soft tissues, the labrum and remaining tissue in the fovea were excised using a scalpel and cautery. The acetabulum was then protected with a sponge while we returned our attention to the femur. With the leg in a figure 4 position utilizing Homans for soft tissue protection , a box cutting osteotome, followed by Parker awkim, followed by serial broaches were utilized in order to prepare the femur. It was found that a size 3 broach gave good axial and rotational stability. The proximal femur was visualized to ensure that there were no signs of fracture. A series of heads were trialed. It was found that a + 1.5 femoral head gave good overall stability. There is minimal longitudinal instability. Hip range of motion was able to reach full extension and external rotation to greater than 75 degrees prior to impingement along the posterior acetabulum. The hip was able to be flexed to greater than 90 degrees with internal rotation greater than 60 degrees prior to anterior impingement. The limb lengths were near equal based on comparison to the contralateral side . At this point was felt this was the appropriately sized femoral components as well as neck and femoral head. The trial implants were removed. A canal cement plug was placed distally and the canal was thoroughly irrigated using pulsatile vacuum brush device. The canal was then thoroughly dried with a suction device. The cement was vacuum mixed per the zyglo technician's instructions and placed into a cement gun. Cement was then placed in the dry irrigated femur using modern cementing technique using a pressurizing device. The stem was then placed in the appropriate version compared to her [place] anatomy and held in place while the cement cured and the extruded cement was removed. Once the cement was fully cured, we ensured that the stem was stable and that there were no signs of fracture. The remaining extruded cement was removed, and the joint and the capsule were thoroughly evaluated to ensure there are no cement fragments. The final femoral bipolar head was then impacted in the place. The hip was then reduced and seated completely. The capsule was repaired with a single interrupted #1 Vicryl. The abductor tendon was repaired to the greater trochanter utilizing #5 Ethibond through drill holes. This was oversewn with #1 Vicryl. The fascia was closed with interrupted #1 Vicryl. The wounds were thoroughly irrigated as we closed in layers. The deep and subcutaneous fat layers were closed with 0 Vicryl. The subcutaneous tissue was closed with a running 3-0 Vicryl and the skin with jayy. All sponge, needle, blade, and instrument counts were correct prior to closing the wounds. Sterile dressings consisting of Xeroform, 4 x 4's, ABD, and tape were applied. The patient was awoken and transferred to her hospital bed and then to the postanesthesia care unit in stable condition. Postoperative condition: The plan is to return to the medical/surgical inpatient floor postoperatively. Postoperatively 24 hours of IV antibiotics, pain control, physical therapy, occupational therapy, and medical comanagement will be utilized. Patient will be weightbearing as tolerated with anterior hip precautions. Postoperative films will be obtained in the recovery room.
[2016-06-08] MEDS: ceFAZolin SODIUM 1 GM in DEXTROSE 5 % IN WATER 100 ML IV SCH ×4 (14:31→20:31)
[2016-06-08] MEDS: oxyCODONE HCL/ACETAMINOPHEN 1 TAB TABLET PO PRN ×2 (17:24→20:36)
[2016-06-08] MEDS: SENNOSIDES/DOCUSATE SODIUM 1 TAB TABLET PO SCH (20:30)
[2016-06-08] MEDS: SIMVASTATIN 20 MG TABLET PO SCH (20:30)
[2016-06-09] MEDS: ceFAZolin SODIUM 1 GM in DEXTROSE 5 % IN WATER 100 ML IV SCH ×2 (03:50)
[2016-06-09] MEDS: oxyCODONE HCL/ACETAMINOPHEN 1 TAB TABLET PO PRN ×4 (05:15→16:10)
[2016-06-09 05:16] LABS: Hematocrit 37.1 % (37.0-47.0); Hemoglobin 12.5 gm/dL (12.5-16.0); Mean Cell Volume 86.9 fl (78-100); Mean Corpuscular Hemoglobin 29.3 pg (27-31); Mean Corpuscular Hgb Conc 33.7 g/dl (32-36); Mean Platelet Volume 9.5 fl (6.0-9.5); Platelet Count 188 K/mm3 (150-450); Red Blood Count 4.27 M/mm3 (4.2-5.4); Red Cell Distribution Width 12.8 % (11.5-14.0); White Blood Count 9.4 K/mm3 (4.0-10.5)
[2016-06-09 05:37] LABS: Anion Gap 13.7 mmol/L (6.8-13.8); Calcium * 8.3 mg/dL (7.9-10.9); Carbon Dioxide 24.7 mmol/L (24-32.6); Estimated Creat Clear 40.3; Potassium 3.4 mmol/L (3.4-4.6)
--- NOTE | 2016-06-09 08:34 | PN ---
Subjective - Date and Time Seen Date: 06/09/16 Time: 08:33 Subjective Narrative: Subjective: Reports minimal pain. Was able to get to the chair with therapy. Pain is well-controlled. Tolerating by mouth intake. Denies any nausea or vomiting. Denies calf pain. Slept well. Physical exam: Alert and oriented to person, place and time Right lower Extremity: Palpable dorsalis pedis pulse. Sensation grossly intact to light touch. Dressings clean dry and. Able to flex and extend ankle and toes. No excessive drainage. Calf and thigh are soft and nontender. Assessment: Postop day 1 status post right hip billy-arthroplasty. Plan: Continue with physical and occupational therapy weightbearing as tolerated. Anterior hip precautions. Continue with anticoagulation. 24 hours postoperative prophylactic antibiotics. Pain control with goal to rely on oral medications. Continue bowel regimen. Will need 6 weeks with walker or assitive device to protect joint while ambulating during the recovery process. She will need 10 days postoperative Lovenox followed by daily aspirin 325 mg daily. Repeat labs in a.m. Objective - Vitals Vitals: Last Vital Signs Temp 37.2 C 06/09/16 08:09 Pulse 74 06/09/16 08:09 Resp 20 06/09/16 08:09 BP 116/64 06/09/16 08:09 Pulse Ox 96 06/09/16 08:09 - Abnormal Lab Findings Abnormal Lab Findings: Abnormal Lab Results 06/09/16 Range/Units 05:17 Random Glucose 138 H D (70-110) mg/dL Cauti Physician Documentation - Urinary Catheter Management Urethral (Harmon) Date of Insertion: 06/06/16 Time of Insertion: 14:50 Date of Removal: 06/09/16 Time of Removal: 07:30 Assessment/Plan - Problems/Diagnosis (1) Fracture of femoral neck, right Problem: Acute Qualifiers: Encounter type: subsequent encounter Fracture type: closed Fracture healing: with routine healing Qualified Code(s): S72.001D - Fracture of unspecified part of neck of right femur, subsequent encounter for closed fracture with routine healing
[2016-06-09] MEDS: METOPROLOL TARTRATE 50 MG TABLET PO SCH ×2 (09:13→16:11)
[2016-06-09] MEDS: amLODIPine BESYLATE 5 MG TABLET PO SCH (09:14)
[2016-06-09] MEDS: LISINOPRIL 10 MG TABLET PO SCH ×2 (09:14→20:38)
[2016-06-09] MEDS: ENOXAPARIN SODIUM 40 MG/0.4 ML SYRG SC SCH (12:23)
--- NOTE | 2016-06-09 15:23 | PN ---
Subjective - Date and Time Seen Date: 06/09/16 Time: 08:50 Subjective Narrative: Very little pain. Patient taking a few steps in the room. No nausea. Feels pretty good. Objective - Review of Systems Generalized/Overall Review: Reports: No Symptoms Reported EENTM: Reports: No Symptoms Reported Respiratory: Reports: No Symptoms Reported Cardiac: Reports: No Symptoms Reported Abdominal: Reports: No Symptoms Reported Genitourinary Symptoms: Reports: No Symptoms Reported Musculoskeletal Complaints: Reports: Other - right hip pain Neurological: Reports: No Symptoms Reported Skin: Reports: No Symptoms Reported Endocrine: Reports: No Symptoms Reported Misc: All systems neg except as marked - Vitals Vitals: Last Vital Signs Selected Entries 06/09/16 08:09 Temperature 37.2 C Pulse Rate 74 Respiratory 20 Rate Blood Pressure 116/64 O2 Sat by Pulse 96 Oximetry Oxygen Delivery Room Air Method - Abnormal Lab Findings Abnormal Lab Findings: Abnormal Lab Results 06/09/16 Range/Units 05:17 Random Glucose 138 H D (70-110) mg/dL - Exam Constitutional: Present: Alert, Oriented x3, Cooperative, Well developed, Well nourished, No distress ENT Exam: Present: normal ENT inspection, hearing grossly normal Neck: Present: normal inspection Respiratory: Present: lungs clear, no respiratory distress Cardiovascular/Chest: Present: regular rate, rhythm, no murmur Abdomen: Present: Normal bowel sounds, soft, nontender, nondistended, no rebound tenderness, no hepatospenomegaly, no masses Extremity: Present: other - dressing not removed from hip wound Neurologic: Present: alert, oriented x 3 Appearance: Present: appropriate appearance, appropriate insight, neat, no memory impairment Eye contact: Present: cooperative, good eye contact, normal speech Thoughts: Present: normal thought pattern Cauti Physician Documentation - Urinary Catheter Management Urethral (Harmon) Date of Insertion: 06/06/16 Time of Insertion: 14:50 Date of Removal: 06/09/16 Time of Removal: 07:30 Assessment/Plan Plan Narrative: Post op protocol. Cephalexin po for a total of 10 days, starting today. for E coli UTI (see [facility] records) - Problems/Diagnosis (1) E. coli UTI Problem: Acute Narrative: From culture in [place]. cephalexin will work fine. (2) Fracture of femoral neck, right Problem: Acute Qualifiers: Encounter type: subsequent encounter Fracture type: closed Fracture healing: with routine healing Qualified Code(s): S72.001D - Fracture of unspecified part of neck of right femur, subsequent encounter for closed fracture with routine healing (3) HLD (hyperlipidemia) Problem: Chronic Qualifiers: Hyperlipidemia type: unspecified Qualified Code(s): E78.5 - Hyperlipidemia , unspecified (4) HTN (hypertension) Problem: Chronic Qualifiers: Hypertension type: essential hypertension Qualified Code(s): I10 - Essential (primary) hypertension
[2016-06-09] MEDS: CEPHALEXIN MONOHYDRATE 500 MG CAPSULE PO SCH ×2 (16:10→20:39)
[2016-06-09] MEDS: SIMVASTATIN 20 MG TABLET PO SCH (20:38)
[2016-06-09] MEDS: SENNOSIDES/DOCUSATE SODIUM 1 TAB TABLET PO SCH (20:38)
[2016-06-10 05:34] LABS: Hematocrit 34.8 % (37.0-47.0); Hemoglobin 11.6 gm/dL (12.5-16.0); Mean Cell Volume 86.8 fl (78-100); Mean Corpuscular Hemoglobin 28.9 pg (27-31); Mean Corpuscular Hgb Conc 33.3 g/dl (32-36); Mean Platelet Volume 10.7 fl (6.0-9.5); Platelet Count 156 K/mm3 (150-450); Red Blood Count 4.01 M/mm3 (4.2-5.4); Red Cell Distribution Width 12.7 % (11.5-14.0); White Blood Count 9.2 K/mm3 (4.0-10.5)
[2016-06-10 05:43] LABS: BUN/Creatinine Ratio 12.7 (9.0-21.6); Calcium * 8.4 mg/dL (7.9-10.9); Carbon Dioxide 24.5 mmol/L (24-32.6); Estimated Creat Clear 35.2; Potassium 3.5 mmol/L (3.4-4.6)
--- NOTE | 2016-06-10 06:02 | PN ---
<Lizabeth Valentin - Last Filed: 06/10/16 06:40> Subjective - Date and Time Seen Date: 06/10/16 Time: 05:59 Subjective Narrative: Mrs. Timmons is awake and in no distress. Has been ambulating short distances in the room. Pain is better but hurts more with activity. Is eating well. reports no BM for 2 days. Objective - Vitals Vitals: Last Vital Signs Temp 37.2 C 06/10/16 03:01 Pulse 82 06/10/16 04:30 Resp 20 06/10/16 03:01 BP 132/69 06/10/16 03:01 Pulse Ox 92 06/10/16 03:01 - Abnormal Lab Findings Abnormal Lab Findings: Abnormal Lab Results 06/10/16 06/10/16 Range/Units 04:33 04:33 RBC 4.01 L (4.2-5.4) M/mm3 Hgb 11.6 L (12.5-16.0) gm/dL Hct 34.8 L (37.0-47.0) % MPV 10.7 H (6.0-9.5) fl Anion Gap 14.0 H (6.8-13.8) mmol/L Est GFR (Non-Af Amer) 55 L (60-130) mL/min Random Glucose 112 H (70-110) mg/dL - Exam Constitutional: Present: Alert, Oriented x3, No distress, Elderly ENT Exam: Present: normal ENT inspection, hearing grossly normal, moist mucous membranes Neck: Present: full range of motion, supple, normal inspection Breasts: Present: Exam deferred Respiratory: Present: lungs clear, no accessory muscle use, No wheezing Cardiovascular/Chest: Present: normal peripheral pulses, regular rate, rhythm Abdomen: Present: Normal bowel sounds, soft, nontender /Rectal: Present: Exam deferred Extremity: Present: no pedal edema, no calf tenderness, other - RT hip surgical wound Skin Exam: Present: warm/dry, no cyanosis Lymphatic: Present: no adenopathy Neurologic: Present: no motor/sensory deficits, alert, oriented x 3. Absent: dizzy/light-headedness Appearance: Present: appropriate appearance, appropriate insight, no memory impairment Eye contact: Present: cooperative, good eye contact, normal speech Thoughts: Present: normal thought pattern, no apparent hallucination Cauti Physician Documentation - Urinary Catheter Management Urethral (Harmon) Date of Insertion: 06/06/16 Time of Insertion: 14:50 Date of Removal: 06/09/16 Time of Removal: 07:30 Assessment/Plan - Problems/Diagnosis (1) Fracture of femoral neck, right Problem: Acute QualifierTitle: Encounter type: subsequent encounter Fracture type: closed Fracture healing: with routine healing Qualified Code(s): S72.001D - Fracture of unspecified part of neck of right femur, subsequent encounter for closed fracture with routine healing Narrative: POD # 2 Continue with Ortho recommendations, pain mgt, anticoagulation PT/OT. (2) E. coli UTI Problem: Acute Narrative: Cephalexin po for a total of 10 days, starting today for E coli UTI (3) HTN (hypertension) Problem: Chronic QualifierTitle: Hypertension type: essential hypertension Qualified Code( s): I10 - Essential (primary) hypertension (4) HLD (hyperlipidemia) Problem: Chronic QualifierTitle: Hyperlipidemia type: unspecified Qualified Code(s): E78.5 - Hyperlipidemia, unspecified <Uvaldo Dean - Last Filed: 06/10/16 21:26> Objective - Vitals Vitals: Last Vital Signs Temp 36.9 C 06/10/16 19:52 Pulse 80 06/10/16 20:02 Resp 20 06/10/16 18:19 BP 108/60 06/10/16 20:02 Pulse Ox 92 06/10/16 18:19 - Abnormal Lab Findings Abnormal Lab Findings: Abnormal Lab Results 06/10/16 06/10/16 Range/Units 04:33 04:33 RBC 4.01 L (4.2-5.4) M/mm3 Hgb 11.6 L (12.5-16.0) gm/dL Hct 34.8 L (37.0-47.0) % MPV 10.7 H (6.0-9.5) fl Anion Gap 14.0 H (6.8-13.8) mmol/L Est GFR (Non-Af Amer) 55 L (60-130) mL/min Random Glucose 112 H (70-110) mg/dL Assessment/Plan Plan Narrative: Moving better. Home soon. Follow postop protocol. I directly supervised all of [facility]'s care for this patient. - Problems/Diagnosis (1) E. coli UTI Problem: Acute (2) Fracture of femoral neck, right Problem: Acute Qualifiers: Encounter type: subsequent encounter Fracture type: closed Fracture healing: with routine healing Qualified Code(s): S72.001D - Fracture of unspecified part of neck of right femur, subsequent encounter for closed fracture with routine healing (3) HLD (hyperlipidemia) Problem: Chronic Qualifiers: Hyperlipidemia type: unspecified Qualified Code(s): E78.5 - Hyperlipidemia , unspecified (4) HTN (hypertension) Problem: Chronic Qualifiers: Hypertension type: essential hypertension Qualified Code(s): I10 - Essential (primary) hypertension
[2016-06-10] MEDS: CEPHALEXIN MONOHYDRATE 500 MG CAPSULE PO SCH ×4 (09:46→20:03)
[2016-06-10] MEDS: oxyCODONE HCL/ACETAMINOPHEN 1 TAB TABLET PO PRN (09:46)
[2016-06-10] MEDS: METOPROLOL TARTRATE 50 MG TABLET PO SCH ×2 (09:46→16:41)
[2016-06-10] MEDS: LISINOPRIL 10 MG TABLET PO SCH ×2 (09:47→20:02)
[2016-06-10] MEDS: amLODIPine BESYLATE 5 MG TABLET PO SCH (09:47)
[2016-06-10] MEDS: ENOXAPARIN SODIUM 40 MG/0.4 ML SYRG SC SCH (13:29)
[2016-06-10] MEDS: SIMVASTATIN 20 MG TABLET PO SCH (20:02)
[2016-06-10] MEDS: SENNOSIDES/DOCUSATE SODIUM 1 TAB TABLET PO SCH (20:02)
--- NOTE | 2016-06-11 07:01 | PN ---
Subjective - Date and Time Seen Date: 06/11/16 Time: 06:57 Subjective Narrative: Mrs. Timmons is awake and in no distress. Has been tolerating activity well. Pain is better. Bowel are moving well. Objective - Vitals Vitals: Last Vital Signs Temp 37.1 C 06/11/16 06:17 Pulse 83 06/11/16 06:17 Resp 20 06/11/16 06:17 BP 157/77 06/11/16 06:17 Pulse Ox 95 06/11/16 06:17 - Exam Constitutional: Present: Alert, Oriented x3, No distress ENT Exam: Present: normal ENT inspection, hearing grossly normal, moist mucous membranes. Absent: nasal congestion, nasal drainage Neck: Present: full range of motion, supple, normal inspection Breasts: Present: Exam deferred Respiratory: Present: lungs clear, normal breath sounds, no accessory muscle use , No wheezing Cardiovascular/Chest: Present: regular rate, rhythm, no murmur Abdomen: Present: Normal bowel sounds, soft, nontender /Rectal: Present: Exam deferred Extremity: Present: normal inspection, no pedal edema, other - RT hip surgical site. Skin Exam: Present: warm/dry, no cyanosis Lymphatic: Present: no adenopathy Neurologic: Present: no motor/sensory deficits, alert, oriented x 3. Absent: dizzy/light-headedness Appearance: Present: appropriate appearance, appropriate insight Eye contact: Present: cooperative, good eye contact, normal speech Thoughts: Present: normal thought pattern, no apparent hallucination Cauti Physician Documentation - Urinary Catheter Management Urethral (Harmon) Date of Insertion: 06/06/16 Time of Insertion: 14:50 Date of Removal: 06/09/16 Time of Removal: 07:30 Assessment/Plan - Problems/Diagnosis (1) Fracture of femoral neck, right Problem: Acute Qualifiers: Encounter type: subsequent encounter Fracture type: closed Fracture healing: with routine healing Qualified Code(s): S72.001D - Fracture of unspecified part of neck of right femur, subsequent encounter for closed fracture with routine healing Narrative: POD # 3- Continue with Ortho recommendations, pain mgt, anticoagulation PT/OT. May need skilled placement for continued strengthening, (2) E. coli UTI Problem: Acute Narrative: On Keflex Day # 2 out of 10. (3) HTN (hypertension) Problem: Chronic Qualifiers: Hypertension type: essential hypertension Qualified Code(s): I10 - Essential (primary) hypertension (4) HLD (hyperlipidemia) Problem: Chronic Qualifiers: Hyperlipidemia type: unspecified Qualified Code(s): E78.5 - Hyperlipidemia , unspecified
[2016-06-11] MEDS: oxyCODONE HCL/ACETAMINOPHEN 1 TAB TABLET PO PRN ×2 (09:18→20:52)
[2016-06-11] MEDS: CEPHALEXIN MONOHYDRATE 500 MG CAPSULE PO SCH ×4 (09:18→20:52)
[2016-06-11] MEDS: METOPROLOL TARTRATE 50 MG TABLET PO SCH ×2 (09:18→16:19)
[2016-06-11] MEDS: LISINOPRIL 10 MG TABLET PO SCH ×2 (09:19→20:53)
[2016-06-11] MEDS: amLODIPine BESYLATE 5 MG TABLET PO SCH (09:19)
[2016-06-11] MEDS: ENOXAPARIN SODIUM 40 MG/0.4 ML SYRG SC SCH (12:07)
--- NOTE | 2016-06-11 16:06 | PN ---
Subjective - Date and Time Seen Date: 06/11/16 Time: 16:04 Subjective Narrative: Subjective: Reports minimal pain. Was able to do stairs with therapy. Pain is well-controlled. Tolerating by mouth intake. Denies any nausea or vomiting. Denies calf pain. Physical exam: Alert and oriented to person, place and time Right lower Extremity: Palpable dorsalis pedis pulse. Sensation grossly intact to light touch. Dressings clean dry and. No drainage. Calf and thigh are soft and nontender. Assessment: Postop day 3 status post right hip billy-arthroplasty. Plan: Continue with physical and occupational therapy weightbearing as tolerated. Anterior hip precautions - no active abduction for 6 weeks. Continue with anticoagulation. Pain control with goal to rely on oral medications. CWill need 6 weeks with walker or assitive device to protect joint while ambulating during the recovery process. She will need 10 days postoperative Lovenox followed by daily aspirin 325 mg daily. OK to transfer from an Orthopedic standpoint. Will follow-up with Ortho in 2 weeks. Objective - Vitals Vitals: Last Vital Signs Temp 37.1 C 06/11/16 14:23 Pulse 73 06/11/16 14:23 Resp 20 06/11/16 14:23 BP 105/51 06/11/16 14:23 Pulse Ox 93 06/11/16 14:23 Cauti Physician Documentation - Urinary Catheter Management Urethral (Harmon) Date of Insertion: 06/06/16 Time of Insertion: 14:50 Date of Removal: 06/09/16 Time of Removal: 07:30 Assessment/Plan - Problems/Diagnosis (1) Fracture of femoral neck, right Problem: Acute Qualifiers: Encounter type: subsequent encounter Fracture type: closed Fracture healing: with routine healing Qualified Code(s): S72.001D - Fracture of unspecified part of neck of right femur, subsequent encounter for closed fracture with routine healing
[2016-06-11] MEDS: SENNOSIDES/DOCUSATE SODIUM 1 TAB TABLET PO SCH (20:53)
[2016-06-11] MEDS: SIMVASTATIN 20 MG TABLET PO SCH (20:54)
[2016-06-12] MEDS: oxyCODONE HCL/ACETAMINOPHEN 1 TAB TABLET PO PRN (05:15)
[2016-06-12] MEDS: LISINOPRIL 10 MG TABLET PO SCH (10:16)
[2016-06-12] MEDS: CEPHALEXIN MONOHYDRATE 500 MG CAPSULE PO SCH ×2 (10:16→13:49)
[2016-06-12] MEDS: amLODIPine BESYLATE 5 MG TABLET PO SCH (10:17)
[2016-06-12] MEDS: METOPROLOL TARTRATE 50 MG TABLET PO SCH (10:17)
[2016-06-12 10:20] VITALS: BP 126/64
--- NOTE | 2016-06-12 12:00 | DS ---
(1) E. coli UTI Problem: Acute (2) Fracture of femoral neck, right Problem: Acute Qualifiers: Encounter type: subsequent encounter Fracture type: closed Fracture healing: with routine healing Qualified Code(s): S72.001D - Fracture of unspecified part of neck of right femur, subsequent encounter for closed fracture with routine healing (3) HLD (hyperlipidemia) Problem: Chronic Qualifiers: Hyperlipidemia type: unspecified Qualified Code(s): E78.5 - Hyperlipidemia , unspecified (4) HTN (hypertension) Problem: Chronic Qualifiers: Hypertension type: essential hypertension Qualified Code(s): I10 - Essential (primary) hypertension Description of Stay: Following initial evaluation, patient's right hip fracture was repaired. A possible UTI was identified in the [facility] ER prior to transfer to [facility], which ultimately proved to be due to E coli, sensitive to Cephalexin, which she is taking now. She has done very well post repair, and is now going to [facility] for further rehab. Dr. Skelton will follow her there. Procedures Performed: see notes below - Right hip cemented billy-arthroplasty Discharge Disposition: Other HealthCare facility Disposition: Other health care facility Condition: Good Discharge Activity: Activity as tolerated Discharge Diet: General/regular food Discharge Level of Care:: SNF - Usp Usp Therapy: Physicial Therapy, Occupation Therapy Consultation Done:: Dr. Guidry, orthopedics Problem Oriented Discharge Instructions to Patient/Family: Hip Fracture Additional Patient Instructions (free text): Lovenox s.c. daily through 06/19/16. Aspirin 325 mg e.c. daily starting 06/20/16 Followup with orthopedics in 2 weeks. No active abduction of right hip for 6 weeks. Ambulation with walker. Prescriptions (Any new or edited meds): Aspirin [Aspirin Enteric Coated] 325 mg PO DAILY #30 tablet. Cephalexin Monohydrate [Keflex] 500 mg PO QID #30 capsule Enoxaparin Sodium [Lovenox] 40 mg SC Q24H #7 disp.syrin Lisinopril [Zestril] 10 mg PO BID #60 tablet amLODIPine BESYLATE [Norvasc] 2.5 mg PO DAILY #30 tablet Complete Home Medications List: Complete Home Medication List: Lovastatin 40 mg PO DAILY 06/06/16 Metoprolol Tartrate [Lopressor] 50 mg PO BID 06/06/16 Acetaminophen [Tylenol] 650 mg PO Q6H PRN #0 tablet 06/12/16 Aspirin [Aspirin Enteric Coated] 325 mg PO DAILY #30 tablet. 06/12/16 Cephalexin Monohydrate [Keflex] 500 mg PO QID #30 capsule 06/12/16 Enoxaparin Sodium [Lovenox] 40 mg SC Q24H #7 disp.syrin 06/12/16 Lisinopril [Zestril] 10 mg PO BID #60 tablet 06/12/16 Mag Hydrox/Al Hydrox/Simeth [Maalox Plus Suspension] 30 ml PO Q6H PRN #0 udc 08/24 amLODIPine BESYLATE [Norvasc] 2.5 mg PO DAILY #30 tablet 06/12/16
[2016-06-12] MEDS: ENOXAPARIN SODIUM 40 MG/0.4 ML SYRG SC SCH (13:50)
== END 2016-06-12 14:30 | DRG 536 ==
LOC: ER 19:05 → MS 19:20
PROVIDERS: ADMIT Nurse Practitioner; ATTEND Allergy & Immunology
DX: S72.001A Fracture of unspecified part of neck of right femur, initial encounter for closed fracture (principal); N39.0 Urinary tract infection, site not specified; B96.20 Unspecified Escherichia coli [E. coli] as the cause of diseases classified elsewhere; W10.8XXA Fall (on) (from) other stairs and steps, initial encounter; Y92.008 Other place in unspecified non-institutional (private) residence as the place of occurrence of the external cause; I10 Essential (primary) hypertension; E78.5 Hyperlipidemia, unspecified

== ENCOUNTER 2017-06-24 18:24 | Emergency (ER) | payer MEDICARE, BC ==
[2017-06-24] MEDS ORDERED: ACETAMINOPHEN 325 MG TABLET PO ONE (18:52)
[2017-06-24] MEDS ORDERED: ACETAMINOPHEN 325 MG TABLET ONE (18:54)
--- NOTE | 2017-06-24 19:00 | ERNOTE ---
Lower Extremity HPI - General Lower Extremities Pain: knee: right Time Seen by Provider: 06/24/17 18:44 Source: patient Exam Limitations: no limitations - Immun/Allergies/Home Medications Immunizations: IMMUNIZATION HX Immunizations Up to Date Yes History of Influenza Vaccine No Hx Pneumococcal Vaccination Yes Allergies/Adverse Reactions: Allergies Allergy/AdvReac Type Severity Reaction Status Date / Time No Known Allergies Allergy Verified 06/24/17 18:32 Home Medications: HOME MEDICATIONS Lovastatin 40 mg PO DAILY 06/06/16 [Last Taken Unknown] Metoprolol Tartrate [Lopressor] 50 mg PO BID 06/06/16 [Last Taken 06/06/16 08: 00 50 mg] Acetaminophen [Tylenol] 650 mg PO Q6H PRN #0 tablet 06/12/16 [Last Taken Unknown ] Aspirin [Aspirin Enteric Coated] 325 mg PO DAILY #30 tablet.dr 06/12/16 [Last Taken Unknown] Cephalexin Monohydrate [Keflex] 500 mg PO QID #30 capsule 06/12/16 [Last Taken Unknown] Enoxaparin Sodium [Lovenox] 40 mg SC Q24H #7 disp.syrin 06/12/16 [Last Taken Unknown] HYDROcodone/ACETAMINOPHEN [Cushing 5-325] 1 - 2 tab PO QID PRN #100 tab 06/12/16 [ Last Taken Unknown] Lisinopril [Zestril] 10 mg PO BID #60 tablet 06/12/16 [Last Taken Unknown] Mag Hydrox/Aluminum Hyd/Simeth [Maalox Plus Suspension] 30 ml PO Q6H PRN #0 udc 06/12/16 [Last Taken Unknown] amLODIPine BESYLATE [Norvasc] 2.5 mg PO DAILY #30 tablet 06/12/16 [Last Taken Unknown] - History of Present Illness Narrative: 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 She denies any loss of consciousness, has been able to ambulate. She continues to have pain in her right knee worse with weight bearing, mild at rest. She has been taking ibuprofen for pain. Her family talked her into coming to night as she still have pain and her leg is swollen Date (Duration): 06/22/17 Review of Systems - Review of Systems Constitutional: Absent: recent illness, fever ENT: Present: no symptoms reported Respiratory: Absent: shortness of breath, cough Cardiology: Absent: chest pain Gastrointestinal/Abdominal: Absent: nausea, vomiting Genitourinary: Present: no symptoms reported Musculoskeletal: Present: See HPI. Absent: back pain Neurological: Absent: headache, weakness, numbness - Patient's Past Medical History Patient History - Medical: No pertinent hx Patient History - Cardiac/Respiratory: Hypertension, Hyperlipidemia Patient History - Cancer: Bone Patient History - Surgical Procedures: Other Patient History - Other: None - Family History Father Family History - Medical: Family History - Cardiac/Respiratory: Cardiac Arrest Mother Family History - Medical: , No pertinent hx - Social History Living Situations: home Abuse History: No History of abuse Psych History: No pertinent hx Smoking Status: Never smoker Have you smoked in the past 12 months: No Do you dip or chew tobacco: No Alcohol Use: none Drug Use: none - Immunizations Immunizations Up to Date: Yes Hx Pneumococcal Vaccination: Yes History of Influenza Vaccine: No Physical Exam - Physical Exam General Appearance: Present: wd/wn, alert, no apparent distress Head Exam: Present: normal inspection, no evidence of injury Eye Exam: Normal inspection: bilateral Ears, Nose, Throat: Present: normal except - - small superficial abrasion on left upper lip, normal pharynx Neck: Present: normal inspection, nontender, supple, full range of motion Respiratory: Present: no respiratory distress, normal breath sounds, chest nontender, lungs clear Cardiovascular/Chest: Present: regular rate, rhythm, no murmur Peripheral Pulses: N=norm/S=strong/W=weak/B=bound/A=absent: Dorsalis-pedis (R): Normal Back Exam: Present: normal inspection, no vertebral tenderness Extremity Exam: Present: normal except - - right leg: patella slightly tender, joint effusion, pain on flexion Neurological Exam: Present: alert, oriented, normal mood/affect, no motor/ sensory deficits Skin Exam: Present: normal color, warm/dry ED Progress - Vital Signs Patient's Vital Signs:: I have reviewed the patient's vital signs. Vital Signs: Vital Signs 06/24/17 18:33 Temperature 36.4 C L Pulse Rate 79 Respiratory 15 Rate Blood Pressure 136/77 O2 Sat by Pulse 99 Oximetry - X-Ray X-Ray #1 X-Ray: knee - displaced transverse patella fracture Interpretation: Interp. by me - Progress/Reassessment Chief Complaint: Lower Extremity Pain/ Injury Progress Note-Subjective: 06/24/17 19:[address] Guidry, knee immobilizer, call clinic for follow up later this week, weight bearing as tolerated 06/24/17 19:27 discussed Xray findings and plan with patient and family Departure Clinical Impression: Patella fracture Qualifiers: Encounter type: initial encounter Fracture type: closed Fracture morphology: transverse Fracture alignment: displaced Laterality: right Qualified Code(s): S82.031A - Displaced transverse fracture of right patella, initial encounter for closed fracture - Departure Disposition: Home self-care Condition: Good Instructions: Patellar Fracture, Adult Additional Instructions: call the orthopedic office in the morning for a follow up appointment this week wear the knee immoblizer at all times, you may put weight on your leg but use a walker so you don't fall again take tylenol (325mg) two tablets every four hours as needed for pain, try to not take any ibuprofen Referrals: Yonatan Guidry MD [Staff Physician] -
[2017-06-24 19:28] VITALS: BP 125/69
== END 2017-06-24 19:40 | disposition home or self-care (01) ==
LOC: ER 18:24
PROC: 2W3LX1Z Immobilization of Right Lower Extremity using Splint (ICD-10-PCS; principal; 2017-06-24)
DX: S82.031A Displaced transverse fracture of right patella, initial encounter for closed fracture (principal); W18.09XA Striking against other object with subsequent fall, initial encounter; Y93.9 Activity, unspecified; Y92.9 Unspecified place or not applicable

== ENCOUNTER 2017-07-02 06:43 | Day surgery (SDC) | payer MEDICARE, BC ==
[~2017-07-02 06:43] MED LIST: RINGER'S SOLUTION,LACTATED 1,000 ML IV PRN
[2017-07-02] MEDS: RINGER'S SOLUTION,LACTATED 1,000 ML IV ONE ×2 (07:34→09:15)
[2017-07-02] MEDS: ceFAZolin SODIUM 1 GM VIAL IV PRN (07:50)
--- NOTE | 2017-07-02 10:06 | OR ---
Anesthesia Procedure Note - Anesthesia Procedure Note Date of Service: 07/02/17 Narrative: Vital Signs - Last Taken Temp 36.7 C 07/02/17 09:50 Pulse 77 07/02/17 10:00 Resp 18 07/02/17 10:00 BP 153/81 07/02/17 10:00 Pulse Ox 95 07/02/17 10:00 O2 Oxygen Delivery Method Nasal Cannula 07/02/17 10:04 ANESTHESIA PROCEDURE NOTE Date of Procedure: 07/02/2017 Time of procedure: 7:50 AM. Performed by: Edgar Maurice CRNA, POSTDOCTORAL RESEARCH FELLOW, MSN Acid Supervisor: Roxie Holden RN. Preprocedure diagnosis: Right patella fracture, pinning relief for post open reduction of fracture. Post procedure diagnosis: Same. Procedure: Right Adductor Canal Blockk. Indications: Post ORIF of right patella pain relief. Findings: See below. Details of the procedure: The patient was brought to OR #4 and placed in supine position. The patient's right femoral area to the knee was prepped with chlorhexidine and using ultrasound guidance the right femoral artery and nerve was identified and then followed to the level of the adductor canal. Lidocaine 1% was infiltrated to the skin of the intended injection site. Under ultrasound guidance the saphenous nerve was approached with visualization of a 2 inch shielded block needle. Once saphenous nerve was identified with proximity to the needle tip, the saphenous nerve was surrounded with 20 mL bupivacaine 0.25% with 1-200,000 epinephrine. Please see radiology/ultrasound report for details and retained images of the procedure. EBL: 0 Fluids: N/A. Specimen: N/A. Post procedure condition: The patient tolerated the procedure well. No complications were noted. Thank you for this consultation. Edgar Maurice CRNA, POSTDOCTORAL RESEARCH FELLOW, MSN
[2017-07-02 11:43] VITALS: BP 181/90
--- NOTE | 2017-07-02 12:08 | OR ---
Operative Report - Dictated Report Narrative: Date: 07/02/2017 Preoperative diagnosis: Right displaced patella fracture Postoperative diagnosis: Right displaced, transverse patella fracture Procedure: Open reduction internal fixation of right patella fracture. Surgeon: Stefan Lozada M.D. [employer] Professor: Guido Tyson PA-C Anesthesia: Gen. with adductor canal block. Complications: None Specimens: Bone for disposal. Estimated blood loss: Minimal. Tourniquet time: 80 Minutes at 300 millimeters of mercury. Retained implants: 0.062 inch Génesis wires 2, stainless steel 18-gauge tension wire Indications: Kerri Is a 82-year-old female who tripped and fell from standing height resulting in a displaced right patella fracture. Given the amount of articular displacement and the patient's activity level, I recommended surgical fixation. Patient wished to proceed with surgical treatment. The risks, benefits, and alternatives were discussed in clinic. The risks of , blood clots, bleeding, infection, nerve/tendon blood vessel/ injury, malunion/nonunion , arthrosis, anterior knee pain, postoperative limited range of motion, persistent pain, failure of implants, and need for additional procedures. Patient wished to proceed consent was obtained after answering all questions. Procedure: After marking the correct extremity on the floor, the patient was taken to the operating room. A timeout was performed. IV antibiotics consisting of 1 g of Ancef were administered prior to the procedure. Regional adductor canal block followed by general anesthetic was induced by anesthesia without complication. The patient's right buttock was bumped and the leg placed on a bone foam ramp. SCDs and JOEL hose were utilized on the nonoperative leg. A well-padded tourniquet was applied to the operative thigh. The operative leg was then pre-scrubbed with chlorhexidine and prepped and draped in a standard sterile fashion. After exsanguinating the extremity with an Esmarch bandage, the tourniquet was inflated to 300 mmHg. After marking out the anterior knee for an ~10 cm incision centered over the patella, the skin was incised and dissected down to the joint retinaculum. The retinaculum and tissue over the top of the patella was intact and in complete continuity. This was divided longitudinally down to bone with a sharp knife. This was then dissected subperiosteally medially and laterally exposing the transverse fracture of the distal aspect of the patella. The fracture site was debrided of all hematoma and soft tissue. This was noted to be a simple transverse fracture without any comminution. No large cartilage defects of the patella or the trochlear groove were noted. The fracture was then reduced and held in place with 2 [id number] bone reduction clamps. Our reduction was confirmed via fluoroscopy. Then turned our attention to tension band fixation of the fracture. Two 0.062 inch Génesis wires were placed parallel to one another across the fracture site. The position of our wires was confirmed via fluoroscopy. The quadriceps and patellar tendons were incised longitudinally directly over the wires down to bone. Next an 18-gauge stainless steel wire was passed in a [id number] fashion around our wires proximally and distally. The free ends were left medially and a loop was made laterally and our wire was tightened medially and laterally simultaneously using heavy needle drivers. This provided good compression across the fracture site. We then reconfirmed our reduction and fixation via fluoroscopy. The free ends of the tension wire were then trimmed, bent, and impacted down into the patella so as not to be prominent. Proximally the Génesis wires were bent, then cut, turned 180 and impacted down into the patella. Final inspection demonstrated minimally prominent implants with solid fixation and near-anatomic reduction of the fracture. At this point the wound was copiously irrigated with normal saline. The longitudinal incisions of the quadriceps and patellar tendons were closed with interrupted 0 Vicryl. The peritenon over the patella was then repaired in a running fashion using 0 Vicryl. Next, the subcutaneous tennis tissue was closed in an interrupted fashion with 3-0 Vicryl and the skin was closed with interrupted 4-0 nylon. The incision was dressed with Xeroform, 4 x 4's, soft roll, and an Octavio wrap. The patient was then placed in a hinged knee brace locked in extension. All sponge, needle, blade, and instrument counts were correct prior to closing the wounds. The patient was awoken and transferred to the postanesthesia care unit in stable condition.
== END 2017-07-02 06:44 | disposition home or self-care (01) ==
LOC: AMB 06:43
PROVIDERS: ATTEND Orthopaedic Surgery
PROC: 0QSD04Z Reposition Right Patella with Internal Fixation Device, Open Approach (ICD-10-PCS; principal; 2017-07-02)
PROC: 3E0T3BZ Introduction of Anesthetic Agent into Peripheral Nerves and Plexi, Percutaneous Approach (ICD-10-PCS; 2017-07-02)
DX: S82.031A Displaced transverse fracture of right patella, initial encounter for closed fracture (principal); I10 Essential (primary) hypertension; E78.00 Pure hypercholesterolemia, unspecified; Z68.26 Body mass index [BMI] 26.0-26.9, adult; W01.0XXA Fall on same level from slipping, tripping and stumbling without subsequent striking against object, initial encounter

== ENCOUNTER 2017-08-13 10:52 | Day surgery (SDC) | payer MEDICARE, BC ==
[~2017-08-13 10:52] MED LIST changes: +ceFAZolin SODIUM 1 GM VIAL IV PRN
[2017-08-13] MEDS ORDERED: RINGER'S SOLUTION,LACTATED 1,000 ML IV ONE ×2 (11:39→14:00)
--- NOTE | 2017-08-13 15:32 | OR ---
Operative Report - Dictated Report Narrative: Date: 08/13/2017 Preoperative diagnosis: Failed tension band wiring of right patella fracture Postoperative diagnosis: Failed tension band wiring of right patella fracture Procedure: Revision open reduction internal fixation of right patella fracture. Surgeon: Stefan Lozada M.D. Group Chief Operator: Guido Tyson PA-C Anesthesia: Gen. with femoral nerve block. Complications: None Specimens: 0.062 inch Génesis wires 2, 18-gauge wire for disposal Estimated blood loss: Minimal. Tourniquet time: 109 Minutes at 300 millimeters of mercury. Retained implants: Synthes 4.0 mm partially threaded cannulated screws 2, 18-gauge wire Indications: Kerri Is a 82-year-old female who underwent ORIF with tension band wiring of a displaced, transverse right patella fracture on 07/02/2017. She subsequently developed loosening of the tension band with proximal migration of one of the Génesis wires. I counseled her on the need for revision fixation of her patellar fracture. Patient wished to proceed with surgical treatment. The risks, benefits, and alternatives were discussed in clinic. The risks of , blood clots, bleeding, infection, nerve/tendon blood vessel/ injury, malunion/nonunion, arthrosis, anterior knee pain, postoperative limited range of motion, persistent pain, failure of implants, and need for additional procedures. Patient wished to proceed consent was obtained after answering all questions. Procedure: After marking the correct extremity on the floor, the patient was taken to the operating room. A timeout was performed. IV antibiotics consisting of 1 g of Ancef were administered prior to the procedure. Regional femoral nerve block followed by general anesthetic was induced by anesthesia without complication. The patient's right buttock was bumped and a well-padded , nonsterile tourniquet was placed around the operative thigh. SCDs and JOEL hose were utilized on the nonoperative leg. A well-padded tourniquet was applied to the operative thigh. The operative leg was then pre-scrubbed with chlorhexidine and then prepped and draped in a standard sterile fashion. After exsanguinating the extremity with an Esmarch bandage, the tourniquet was inflated to 300 mmHg. After marking out the anterior knee using the previous incision over the patella , the skin was incised and the original incision was lengthened slightly proximally and distally for better exposure and dissected down to the joint retinaculum. A fair amount of scar tissue was encountered. Using the C-arm to localize the entry and exit sites of the Génesis wires, a sharp knife was used to divide the quadriceps tendon as well as the patellar tendon longitudinally directly over the pin sites. The soft tissue over the top of the patella was also dissected out with electrocautery to reveal the previously placed tension band wire. The tension wire was cut in 2 locations and the wire removed in its entirety. Leaving the Génesis wires across the fracture site, qyukt-[id number]-hputf reduction clamps were used to re-reduce the fracture and provide compression across the fracture site. The previously placed Génesis wires were then removed and 20.045 Génesis wires were placed through the same wire tracts. The cannulated drill bit was then used to drill across the fracture over both wires. These were then measured and 24.0 mm x 34 mm stainless steal cannulated screws were passed across the fracture site medially and laterally providing good compression across the fracture. The position of our screws was confirmed via the C-arm. The fracture was then reduced and held in place with 2 ysqwc-by-hajrr bone reduction clamps. Our reduction was confirmed via fluoroscopy. An 18-gauge wire was then passed in a crossed fashion through both cannulated screws and then tightened using a heavy needle charter driver compressing the wire is tightly down to bone as possible. The final position of our screws and tension wire were confirmed with C-arm and we were happy with our fixation. At this point the wound was copiously irrigated with normal saline. The longitudinal incisions of the quadriceps and patellar tendons were closed with running 0 Vicryl. Next, the subcutaneous tissue was closed in an interrupted fashion with 3-0 Vicryl and the skin was closed with interrupted 4- 0 nylon. The incision was dressed with Xeroform, 4 x 4's, soft roll, and an Octavio wrap. The patient was then placed in a hinged knee brace set at 0-30. All sponge, needle, blade, and instrument counts were correct prior to closing the wounds. The patient was awoken and transferred to the postanesthesia care unit in stable condition.
[2017-08-13 17:22] VITALS: BP 187/97
--- NOTE | 2017-08-13 17:52 | OR ---
Anesthesia Procedure Note - Anesthesia Procedure Note Narrative: Vital Signs - Last Taken Temp 36.3 C L 08/13/17 16:20 Pulse 79 08/13/17 17:20 Resp 16 08/13/17 17:20 BP 187/97 08/13/17 17:20 Pulse Ox 95 08/13/17 17:20 O2 Oxygen Delivery Method Room Air 08/13/17 17:44 ANESTHESIA PROCEDURE NOTE Date of procedure: 08/13/2017. Time of procedure: 1300. Performed by: Mikhail Riley CRNA Dental Technician Apprentice: Ellen Palomo RN . Preprocedure diagnosis: Right patella fracture. Need for postoperative analgesia. . Post procedure diagnosis: Same. Procedure: Right ultrasound-guided adductor canal block for postoperative analgesia. Findings: Patient brought to operating room #3 and placed in supine position patient was sedated. Right inner thigh was prepped with ChloraPrep. And draped sterilely. Ultrasound guidance was utilized in an attempt to find saphenous nerve in the adductor canal. Unable to locate saphenous nerve. Patient's right groin was prepped with ChloraPrep and sterilely draped. Ultrasound-guided right femoral nerve block was done with a 21-gauge 4 inch Stimuplex regional block needle. A total of 25 mL of 0.25% Marcaine with epinephrine 1 200,000 was injected around the femoral nerve. Adequate spread of local anesthesia was noted. Regional block needle was removed intact. EBL: Minimal. Fluids: N/A. Specimen: N/A. Post procedure condition: The patient tolerated the procedure well. No complications were noted. Thank you for this consultation Mikhail Riley CRNA
== END 2017-08-13 10:53 | disposition home or self-care (01) ==
LOC: AMB 10:52
PROVIDERS: ATTEND Orthopaedic Surgery
PROC: 0QSD04Z Reposition Right Patella with Internal Fixation Device, Open Approach (ICD-10-PCS; principal; 2017-08-13)
PROC: 3E0T3BZ Introduction of Anesthetic Agent into Peripheral Nerves and Plexi, Percutaneous Approach (ICD-10-PCS; 2017-08-13)
DX: E78.00 Pure hypercholesterolemia, unspecified; I10 Essential (primary) hypertension; Z68.25 Body mass index [BMI] 25.0-25.9, adult; S82.091A Other fracture of right patella, initial encounter for closed fracture